=== PATIENT | female | born 1990 | race African-American/Black ===

== ENCOUNTER 2018-05-02 16:12 | Day surgery (SDC) | payer OTHER ==
[2018-05-02 17:08] LABS: HEMATOCRIT 36.2 % (36.0-47.0); HEMOGLOBIN 12.5 g/dl (12.0-15.5)
[2018-05-02 17:55] LABS: HCG, SERUM QUANTITATIVE 3643 MIU/ML
[2018-05-02] MEDS: DOXYCYCLINE HYCLATE 100 MG in D5W MINI-BAG PLUS 100 ML IV (17:57)
[2018-05-02] MEDS ORDERED: LIDOCAINE 1% SDV INJ 30 ML VIAL As Ordered (18:06)
[2018-05-02] MEDS ORDERED: SILVER NITRATE APPLICATOR As Ordered (18:06)
[2018-05-02] MEDS ORDERED: fentaNYL 100 MCG/2 ML INJECTION (J3010) As Ordered (18:18)
[2018-05-02] MEDS ORDERED: PROPOFOL 200 MG/20 ML VIAL As Ordered ×3 (18:18→18:35)
[2018-05-02] MEDS ORDERED: MIDAZOLAM INJ 2 MG/2 ML VIAL (J2250) As Ordered ×2 (18:18→18:28)
[2018-05-02] MEDS ORDERED: EPINEPHrine INJ 1 MG/ML 1ML AMP As Ordered (18:28)
[2018-05-02] MEDS ORDERED: ONDANSETRON 4MG/2ML VIAL (J2405) As Ordered (18:31)
[2018-05-02] MEDS ORDERED: dexameTHASONE 4 MG/ML 1ML VIAL (J1100) As Ordered ×2 (18:31)
[2018-05-02] MEDS ORDERED: KETOROLAC 60 MG/2 ML VIAL (J1885) As Ordered (18:44)
== END 2018-05-02 20:10 | disposition home or self-care (01) ==
LOC: M SDC 20:10
DX: O02.1 Missed abortion (principal); E66.9 Obesity, unspecified; Z68.42 Body mass index [BMI] 45.0-49.9, adult
CPT/HCPCS: 59820